=== PATIENT | female | born 1965 ===

== ENCOUNTER 2019-03-29 13:34 | Outpatient (CLI) | payer OTHER ==
--- NOTE | 2019-03-29 23:53 | HP ---
HISTORY OF PRESENT ILLNESS: Ms. Lior Way is a very pleasant 53-year-old who [facility] for evaluation of stasis dermatitis of the right medial lower leg. The patient was referred to the [facility] by Dr. Pandya. The patient states that she has had varicose veins "all my life." She states that she was seen in the emergency department for edema of her right lower leg. She states that she was prescribed a 5-day course of prednisone and a 7-day course of p.o. antibiotics. She states that she then experienced a decrease in the swelling and itching of her right medial lower leg. She states that after completing the course of prednisone, however, she experienced significant erythema, itching and "tightness" of her right medial lower leg for which she was seen by Dr. Pandya. At the time of the patient's visit with Dr. Pandya, she was told to keep her right foot and lower leg wrapped. She states she was also told she had stasis dermatitis and at this time, referred to the [facility] for further evaluation and treatment. PAST MEDICAL HISTORY: Negative for any chronic medical conditions including diabetes mellitus, hypertension, or coronary artery disease. PAST SURGICAL HISTORY: Negative. MEDICATIONS: 1. Terbinafine. 2. Prednisone. ALLERGIES: NO KNOWN DIAGNOSED ALLERGIES. SOCIAL HISTORY: Negative for tobacco or EtOH use. FAMILY HISTORY: Significant for coronary artery disease. The patient's father was diagnosed with coronary artery disease. Family history is negative for diabetes mellitus. PHYSICAL EXAMINATION: VITAL SIGNS: Temperature 98.2, pulse 86, respirations 19, and blood pressure 140/65. GENERAL: A 53-year-old female, sitting on table in examination room, in no acute distress. HEENT: Normocephalic, atraumatic. NECK: No nuchal rigidity. CHEST: Clear to auscultation. CV: Regular rate and rhythm. ABDOMEN: Soft. EXTREMITIES: An area of stasis dermatitis over the right medial lower leg is present. No cellulitis of the right lower leg is appreciated. No maceration of the skin of the right lower leg is noted. No significant edema of the right foot or lower leg is present on exam today. Numerous varicosities are present over the right lower extremity. NEUROLOGIC: Grossly nonfocal. ASSESSMENT AND PLAN: Stasis dermatitis of the right medial lower leg. The patient has been given a prescription for Synalar ointment 0.025% to be applied to the region of stasis dermatitis over the right medial lower leg up to twice a day. The patient has been advised that the first application of the Synalar ointment should be after bathing or showering and patting dry. I will see Ms. Way again in 2 weeks if the stasis dermatitis is still present at this time. The patient understands and is in agreement with the preceding treatment plan. Job ID: [id number]
== END 2019-03-29 13:35 | disposition home or self-care (01) ==
LOC: WCC 13:34
PROVIDERS: ATTEND Family Medicine
DX: I87.2 Venous insufficiency (chronic) (peripheral) (principal)
CPT/HCPCS: 97602; 99203; G0463